=== PATIENT | female | born 1970 | race Caucasian/White ===

== ENCOUNTER 2018-02-15 05:50 | Day surgery (SDC) | payer OTHER ==
[~2018-02-15] VITALS: Ht 162.6 cm; Wt 55.3 kg
[2018-02-15] MEDS ORDERED: LACTATED RINGERS 1,000 ML IV SCH (06:30)
[2018-02-15] MEDS ORDERED: SKIN ADHESIVE 0.7 GM EA TOP ONE (07:03)
[2018-02-15] MEDS ORDERED: LIDOCAINE HCL/PF 1% 10 MG/ML 30ML VIAL ONE (07:03)
[2018-02-15] MEDS ORDERED: BUPIVACAINE HCL/PF 0.5% (5MG/ML) 10ML ONE (07:03)
[2018-02-15] MEDS ORDERED: BACITRACIN 50,000 UNITS/VIAL ONE (07:04)
[2018-02-15] MEDS ORDERED: NORMAL SALINE 0.9% 10 ML SYR ONE (07:04)
[2018-02-15] MEDS ORDERED: FENTANYL CITRATE/PF 50MCG/ML 2ML VIAL ONE (07:20)
[2018-02-15] MEDS ORDERED: LIDOCAINE HCL 1% 20ML VIAL (Pyxis) INJ ONE (07:21)
[2018-02-15] MEDS ORDERED: PROPOFOL 200MG/20ML VIAL IV ONE (07:21)
[2018-02-15] MEDS ORDERED: CEFAZOLIN SODIUM 1000MG/VIAL ONE (07:21)
[2018-02-15] MEDS ORDERED: EPHEDRINE SULFATE 50MG/ML VIAL ONE (07:25)
[2018-02-15 07:29] LABS: UCG SCREEN NEGATIVE
[2018-02-15] MEDS ORDERED: MORPHINE SULFATE 4 MG/ML CPJ (NOT FOR IM USE) IV PRN (08:00)
== END 2018-02-15 11:45 | disposition home or self-care (01) ==
LOC: OR 05:50 → EDSEX 05:50 → EDBD 05:50 → OR 11:45
PROVIDERS: ATTEND Specialist
DX: L72.0 Epidermal cyst (principal); N60.22 Fibroadenosis of left breast; N60.32 Fibrosclerosis of left breast; N60.42 Mammary duct ectasia of left breast; Z88.8 Allergy status to other drugs, medicaments and biological substances; E11.9 Type 2 diabetes mellitus without complications
CPT/HCPCS: 11400; 19120; 81025; 88305; A4216; G0168; J0690; J3010; J3490; J7120; J2704

== ENCOUNTER → 2022-01-12 | Outpatient (CLI) | payer OTHER ==
[~2022-01-12] MED LIST: AMOX-494 PO; CALC-769 PO; ESTR1TAB17 PO
== END | disposition home or self-care (01) ==
LOC: LAB 08:21
PROVIDERS: ATTEND Specialist
DX: Z01.812 Encounter for preprocedural laboratory examination (principal); Z20.822 Contact with and (suspected) exposure to COVID-19
CPT/HCPCS: 87426

== ENCOUNTER → 2022-01-13 | Day surgery (SDC) | payer OTHER ==
[~2022-01-13] VITALS: Ht 162.6 cm; Wt 58.1 kg
[~2022-01-13] MED LIST changes: +BUPIVACAINE HCL/PF 0.5% (5MG/ML) 10ML ONE; +CEFAZOLIN SODIUM 1000MG/VIAL ONE; +DEXAMETHASONE 4MG/ML 1ML VIAL ONE; +FENTANYL CITRATE/PF 50MCG/ML 2ML VIAL IV PRN; +FENTANYL CITRATE/PF 50MCG/ML 2ML VIAL ONE; +HYDROCODONE/ACETAMINOPHEN 5/325MG TABLET PO PRN; +KETOROLAC 30MG/ML VIAL ONE; +LACTATED RINGERS 1,000 ML IV SCH; +LIDOCAINE HCL 1% 20ML VIAL (Pyxis) INJ ONE; +MEPERIDINE HCL/PF 25MG/ML CPJ IV PRN; +METHYLENE BLUE 50 MG/10 ML AMP IV ONE; +MIDAZOLAM HCL 2 MG/2 ML VIAL ONE; +ONDANSETRON HCL 4MG/2ML INJ IV PRN; +ONDANSETRON HCL 4MG/2ML INJ ONE; +POLYMYXIN B SULFATE 500000 UNITS/VIAL ONE; +PROPOFOL 200MG/20ML VIAL IV ONE
[2022-01-13 11:44] VITALS: BP 135/82
== END | disposition home or self-care (01) ==
LOC: OR 07:02
PROVIDERS: ATTEND Specialist
DX: N63.21 Unspecified lump in the left breast, upper outer quadrant (principal); N63.22 Unspecified lump in the left breast, upper inner quadrant; Z79.899 Other long term (current) drug therapy; Z98.890 Other specified postprocedural states; Z88.1 Allergy status to other antibiotic agents
CPT/HCPCS: 19120; 88305; J1885; J2250; J2405; J2704; J3010; J3490; J0690; J1100; Q9968